=== PATIENT | female | born 1985 | race African-American/Black ===

== ENCOUNTER 2018-12-17 07:15 | Day surgery (SDC) | payer OTHER ==
[2018-12-14 10:50] VITALS: BMI 44.8
[2018-12-17] MEDS ORDERED: Bupivacaine/Epinephrine 0.25% 30 ML VIAL ONE (07:40)
[2018-12-17] MEDS ORDERED: Gelfilm 1 EA Packet ONE (07:40)
[2018-12-17] MEDS ORDERED: EPINEPHrine 1 MG/ML AMP ONE (07:40)
[2018-12-17] MEDS ORDERED: Lidocaine 1% w/Epinephrine 1:100K 20 ML VIAL ONE (07:40)
[2018-12-17] MEDS ORDERED: Bacitracin Zinc Ointment 30 gm TUBE ONE (07:40)
[2018-12-17] MEDS ORDERED: Sodium Chloride 0.9% 0 ML ONE (07:47)
== END 2018-12-17 08:24 | disposition home or self-care (01) ==
LOC: SDC 07:15
PROVIDERS: ATTEND Otolaryngology Otology & Neurotology
DX: H72.92 Unspecified perforation of tympanic membrane, left ear (principal); H69.80 Other specified disorders of Eustachian tube, unspecified ear; H93.19 Tinnitus, unspecified ear; H92.10 Otorrhea, unspecified ear; H91.90 Unspecified hearing loss, unspecified ear; H92.02 Otalgia, left ear; Z53.9 Procedure and treatment not carried out, unspecified reason
CPT/HCPCS: 36415; 85014; J0171; J2001; J3490

== ENCOUNTER 2021-06-06 00:33 | Inpatient (IN) | payer OTHER, SELFPAY ==
[2021-06-06 02:38] LABS: BHCG - Serum Negative (NEGATIVE); Pregs Control Background? CLEAR/WHITE (CLR/WHITE); Pregs Control Bar Appear? YES (CONTROL BAR)
[2021-06-06 02:45] LABS: Hemoglobin 10.3 g/dL (12.0-16.0); Mean Corpuscular HGB CONC 32.2 g/dL (32.0-36.0); Mean Corpuscular Hemoglobin 22.9 pg (27.0-31.0); Mean Corpuscular Volume 71.2 fL (78.0-98.0); Mean Platelet Volume 9.2 fL (7.4-10.4); Platelet Count 330 thou/uL (130-400); Red Blood Cell (RBC) Count 4.48 mill/uL (4.20-5.40); White Blood Cell (WBC) Count 23.4 thou/uL (4.8-10.8)
[2021-06-06 02:53] LABS: ALT (SGPT) 69 U/L (8-55); AST (SGOT) 119 U/L (5-34); Albumin 3.2 g/dL (3.5-5.0); Alkaline Phosphatase 60 U/L (40-110); Anion Gap 10 mmol/L (10-20); BUN (Urea Nitrogen) 13 mg/dL (7.0-18.7); Bilirubin, Total 0.3 mg/dL (0.2-1.2); Calc. Creatinine Clearance 0 mL/min (70-130); Calcium 8.3 mg/dL (7.8-10.44); Carbon Dioxide 24 mmol/L (22-29); Chloride 109 mmol/L (98-107); Globulin 3.2 g/dL (2.4-3.5); Glucose 148 mg/dL (70-105); Potassium 3.3 mmol/L (3.5-5.1); Protein, Total 6.4 g/dL (6.0-8.3); Sodium 140 mmol/L (136-145)
[2021-06-06 03:02] LABS: Band 18 % (5-11); Eosinophils 1 % (0-10); Lymphocytes 14 % (21-51); MDiff Complete? YES; Monocytes 5 % (0-10); Neutrophil 61 % (42-75); RBC Morphology Normal; Reactive Lymphocytes 1 % (0-10)
[2021-06-06] MEDS ORDERED: Ondansetron PF 4 MG/2 ML Vial IVP PRN (03:30)
[2021-06-06] MEDS ORDERED: Dextrose 50% Abboject 50 ML SYRINGE SLOW IVP PRN (03:30)
[2021-06-06] MEDS ORDERED: Morphine 4 MG/ML VIAL SLOW IVP PRN ×2 (03:30→03:45)
[2021-06-06] MEDS ORDERED: Dextrose 5% in Water 1,000 ML IV PRN (03:30)
[2021-06-06] MEDS ORDERED: Morphine 2 MG/ML VIAL SLOW IVP PRN (03:30)
[2021-06-06] MEDS ORDERED: Cyclobenzaprine 10 MG TAB PO PRN (03:36)
[2021-06-06] MEDS ORDERED: traMADol HCl 50 MG TAB PO PRN ×2 (03:36)
[2021-06-06] MEDS: Sodium Chloride 0.9% 1,000 ML IV SCH ×2 (04:03→13:19)
[2021-06-06 04:19] LABS: SARS-CoV-2 NAA Rapid Test Not Detected (NotDetected)
[2021-06-06] MEDS ORDERED: Potassium Chloride 20 MEQ/100 ML PREMIX BAG ONE (05:11)
[2021-06-06] MEDS: Potassium Chloride 20 MEQ in Premix Bag 1 BAG IVPB SCH ×2 (05:19→07:01)
[2021-06-06] MEDS ORDERED: Acetaminophen 500 MG TAB ONE (06:01)
[2021-06-06] MEDS: Acetaminophen 500 MG TAB PO SCH ×3 (06:03→18:31)
[2021-06-06 08:36] LABS: #Eosinphils 0.1 thou/uL (0.0-0.7); #Lymphocytes 1.8 thou/uL (1.20-3.40); #Monocytes 0.7 thou/uL (0.11-0.59); #Neutrophils 12.5 thou/uL (1.40-6.50); %Basophils 0.1 % (0.0-1.0); %Eosinophils 0.4 % (0.0-10.0); %Lymphocytes 12.1 % (21.0-51.0); %Monocytes 4.7 % (0.0-10.0); %Neutrophils 82.6 % (42.0-75.0); Mean Corpuscular HGB CONC 30.5 g/dL (32.0-36.0); Mean Corpuscular Hemoglobin 21.8 pg (27.0-31.0); Mean Corpuscular Volume 71.5 fL (78.0-98.0); Mean Platelet Volume 9.4 fL (7.4-10.4); Platelet Count 303 thou/uL (130-400); RBC Distribution Width 13.9 % (11.5-14.5); Red Blood Cell (RBC) Count 4.58 mill/uL (4.20-5.40); White Blood Cell (WBC) Count 15.1 thou/uL (4.8-10.8)
[2021-06-06 08:47] LABS: Lactic Acid 1.1 mmol/L (0.5-2.2)
[2021-06-06 08:51] LABS: ALT (SGPT) 69 U/L (8-55); AST (SGOT) 111 U/L (5-34); Albumin 3.4 g/dL (3.5-5.0); Alkaline Phosphatase 59 U/L (40-110); Anion Gap 11 mmol/L (10-20); BUN (Urea Nitrogen) 10 mg/dL (7.0-18.7); Bilirubin, Total 0.4 mg/dL (0.2-1.2); Calc. Creatinine Clearance 0 mL/min (70-130); Calcium 8.6 mg/dL (7.8-10.44); Carbon Dioxide 24 mmol/L (22-29); Chloride 110 mmol/L (98-107); Glucose 118 mg/dL (70-105); Magnesium 1.9 mg/dL (1.6-2.6); Potassium 4.3 mmol/L (3.5-5.1); Protein, Total 6.4 g/dL (6.0-8.3); Sodium 141 mmol/L (136-145)
[2021-06-06] MEDS ORDERED: Famotidine/PF 20 mg/2ml Vial SLOW IVP SCH (09:00)
[2021-06-06] MEDS ORDERED: traMADol HCl 50 MG TAB ONE (09:24)
[2021-06-06] MEDS ORDERED: Famotidine/PF 20 mg/2ml Vial ONE (09:24)
[2021-06-06] MEDS ORDERED: Iopamidol-370 76% 500 ML 1 ML ONE (09:28)
[2021-06-06] MEDS: Gabapentin 300 MG CAP PO SCH ×3 (09:38→21:05)
[2021-06-06] MEDS: Senokot S 8.6-50 MG TAB PO SCH ×2 (09:40→21:06)
[2021-06-06] MEDS: Polyethylene Glycol 3350 17 GM Packet PO SCH (09:40)
[2021-06-06] MEDS: traMADol HCl 50 MG TAB PO SCH ×4 (13:19→21:05)
[2021-06-07] MEDS: Acetaminophen 500 MG TAB PO SCH ×4 (00:58→18:22)
[2021-06-07] MEDS: traMADol HCl 50 MG TAB PO SCH ×4 (03:58→20:14)
[2021-06-07 06:07] LABS: #Eosinphils 0.5 thou/uL (0.0-0.7); #Lymphocytes 2.5 thou/uL (1.20-3.40); #Monocytes 0.6 thou/uL (0.11-0.59); #Neutrophils 5.4 thou/uL (1.40-6.50); %Basophils 0.5 % (0.0-1.0); %Eosinophils 5.3 % (0.0-10.0); %Lymphocytes 27.7 % (21.0-51.0); %Monocytes 6.6 % (0.0-10.0); %Neutrophils 59.9 % (42.0-75.0); Hemoglobin 9.8 g/dL (12.0-16.0); Mean Corpuscular HGB CONC 30.2 g/dL (32.0-36.0); Mean Corpuscular Hemoglobin 21.7 pg (27.0-31.0); Mean Platelet Volume 9.4 fL (7.4-10.4); Platelet Count 261 thou/uL (130-400); RBC Distribution Width 14.3 % (11.5-14.5)
[2021-06-07] MEDS: Gabapentin 300 MG CAP PO SCH ×3 (09:17→20:14)
[2021-06-07] MEDS: Polyethylene Glycol 3350 17 GM Packet PO SCH ×2 (10:25→15:44)
[2021-06-07] MEDS: Senokot S 8.6-50 MG TAB PO SCH ×2 (10:25→20:13)
[2021-06-07 18:52] VITALS: BMI 44.2
[2021-06-08] MEDS: Acetaminophen 500 MG TAB PO SCH ×3 (00:25→12:47)
[2021-06-08] MEDS: traMADol HCl 50 MG TAB PO SCH ×3 (02:32→14:55)
[2021-06-08 07:45] LABS: #Eosinphils 0.4 thou/uL (0.0-0.7); #Lymphocytes 2.3 thou/uL (1.20-3.40); #Monocytes 0.6 thou/uL (0.11-0.59); #Neutrophils 7.7 thou/uL (1.40-6.50); %Basophils 0.4 % (0.0-1.0); %Eosinophils 3.5 % (0.0-10.0); %Lymphocytes 20.8 % (21.0-51.0); %Monocytes 5.1 % (0.0-10.0); %Neutrophils 70.2 % (42.0-75.0); Hemoglobin 9.5 g/dL (12.0-16.0); Mean Corpuscular HGB CONC 29.8 g/dL (32.0-36.0); Mean Corpuscular Hemoglobin 21.4 pg (27.0-31.0); Mean Corpuscular Volume 71.9 fL (78.0-98.0); Platelet Count 253 thou/uL (130-400); RBC Distribution Width 14.4 % (11.5-14.5); Red Blood Cell (RBC) Count 4.44 mill/uL (4.20-5.40)
[2021-06-08 08:07] LABS: Hypochromia SLIGHT = 6-15 cells (100X) (0-5/hpf); MDiff Complete? YES; Microcytosis SLIGHT = 6-15 cells (100X) (0-5/hpf); Platelet Morphology Comment Appears Adequate; Polychromasia SLIGHT = 2-3 cells (100X) (0-2/hpf)
[2021-06-08] MEDS: Senokot S 8.6-50 MG TAB PO SCH (09:14)
[2021-06-08] MEDS: Polyethylene Glycol 3350 17 GM Packet PO SCH (09:14)
[2021-06-08] MEDS: Gabapentin 300 MG CAP PO SCH ×2 (09:14→14:54)
[2021-06-08 12:49] VITALS: BP 140/97; TEMP 99.2
[2021-06-08] MEDS ORDERED: Amlodipine 5 MG TAB PO SCH (13:00)
[2021-06-09] MEDS ORDERED: Amlodipine 5 MG TAB PO SCH (09:00)
== END 2021-06-08 15:55 | disposition home or self-care (01) | DRG 964 ==
LOC: ERS 00:33 → ERHOLD 03:33 → SURG A 10:51
PROVIDERS: ADMIT Surgery; ATTEND Surgery
DX: S27.0XXA Traumatic pneumothorax, initial encounter (principal); S36.032A Major laceration of spleen, initial encounter; S22.42XA Multiple fractures of ribs, left side, initial encounter for closed fracture; S27.322A Contusion of lung, bilateral, initial encounter; E87.6 Hypokalemia; I10 Essential (primary) hypertension; S51.811A Laceration without foreign body of right forearm, initial encounter; F41.9 Anxiety disorder, unspecified; Z20.822 Contact with and (suspected) exposure to COVID-19; V43.52XA Car driver injured in collision with other type car in traffic accident, initial encounter; Z98.51 Tubal ligation status; Z90.49 Acquired absence of other specified parts of digestive tract
CPT/HCPCS: 36415; 70450; 71045; 71260; 72125; 74177; 80053; 83605; 83735; 84100; 84703; 85025; 86850; 86900; 86901; 93005; G0390; J3480; J7050; S0028; U0002

== ENCOUNTER 2021-06-22 14:08 | Outpatient (CLI) | payer OTHER | END 2021-06-22 14:09 | disposition home or self-care (01) | LOC: BICRAD 14:08 | PROVIDERS: ATTEND Surgery | DX: V89.2XXA Person injured in unspecified motor-vehicle accident, traffic, initial encounter (principal); J98.11 Atelectasis | CPT/HCPCS: 71046 ==